=== PATIENT | male | born 1960 | race Caucasian/White ===

== ENCOUNTER 2018-01-17 19:53 | Emergency (ER) | payer OTHER, SELFPAY ==
[2018-01-17 19:54] VITALS: BP 151/103; PULSE 64; RESP 16; TEMP 37.2; O2SAT 98; BMI 31.2
--- NOTE | 2018-01-17 20:20 | CT_ITS ---
STUDY: CT ABDOMEN AND PELVIS WITHOUT CONTRAST REASON FOR EXAM: Male, 57 years old. Regular quadrant pain x2 hours, nausea RADIATION DOSAGE (If Supplied By Facility): CTDIvol = ( 9.83 ) mGy, DLP = ( 594.28 ) mGycm TECHNIQUE: Transaxial images were obtained from the dome of the diaphragm to the symphysis pubis without oral contrast, and without intravenous contrast. Sagittal and coronal images were reconstructed. Individualized dose optimization techniques were used for this CT. COMPARISON: None. FINDINGS: The visualized lung bases are unremarkable. The visualized portions of the heart are within normal limits. Normal liver. Normal gallbladder and extrahepatic biliary system. Normal spleen. Normal pancreas. Normal bilateral adrenal glands. Normal-appearing left kidney. The right kidney shows mild right hydronephrosis and proximal hydroureter with a minimal amount of perinephric inflammatory stranding. However, there is no obstructing stone noted. Findings could be due to a nonradiopaque stone or more likely to a recently passed stone. Normal visualized stomach. Normal small intestine. Normal colon. The appendix is visualized and appears normal. Appendix best seen on axial image 123. Normal abdominal aorta. Normal inferior vena cava. Normal retroperitoneum. Normal urinary bladder. Normal abdominal wall. There are diffuse degenerative changes of the visualized lumbar spine. CT/Abdomen/Pelvis without Cont IMPRESSION: Mild right hydronephrosis with a minimal amount of perinephric inflammatory stranding. No obstructing stone, stricture, or mass noted. Findings likely due to recently passed stone. Normal left kidney and bladder Normal appendix visualized. Retained stool throughout the colon Electronically Signed: Abhinav Aguirre MD at 21:03 EDT , Service support ,
[2018-01-17] MEDS: Morphine 4 MG/ML Syringe IV (20:27)
[2018-01-17] MEDS: 0.9% Normal Saline 1,000 ML 125 ML IV (20:27)
[2018-01-17] MEDS: Ketorolac 30 MG/ML Syringe 15 MG IV (20:28)
[2018-01-17] MEDS: Ondansetron 4 MG/2 ML Vial IV (20:28)
[2018-01-17 20:54] LABS: Absolute Lymphocyte Count 2.07 X10^3/ul (0.83-4.51); Absolute Neutrophil Count 3.8 X10^3/uL (2.0-7.7); Basophil# 0.01 X10^3/uL; Basophil% 0.1 % (0-1); Eosinophil# 0.26 X10^3/uL; Eosinophils% 3.9 % (0-5); Hematocrit 45.3 % (40-54); Hemoglobin 15.2 g/dl (13.0-16.5); Lymphocyte # 2.07 X10^3/ul (4.0); Lymphocyte % 30.7 % (19-41); Mean Corp Hgb Conc 33.6 g/gl (32-36); Mean Corpuscular Hgb 28.4 pg (27.0-32.0); Mean Corpuscular Volume 84.7 fL (80-94); Mean Platelet Vol. 9.2 fl (6.2-12.0); Monocyte# 0.59 X10^3/uL; Monocyte% 8.8 % (0-10); Neutrophil % 56.4 % (47-70); Platelet Count 222 K/mm3 (150-450); RBC Distribution Width CV 12.7 % (11.6-14.6); RBC Distribution Width SD 38.3 fl (35.1-43.9); Red Blood Count 5.35 M/mm3 (4.6-6.2); White Blood Count 6.7 K/mm3 (4.4-11.0)
[2018-01-17 20:55] LABS: POSITIVE COUNT NO; POSITIVE DIFFERENTIAL NO; POSITIVE MORPHOLOGY NO
[2018-01-17 21:00] LABS: ALB/GLOB Ratio 1.2 RATIO (0.9-2.4); AST(SGOT) 20 U/L (15-37); Alanine Aminotransfer ALT/SGPT 39 U/L (16-61); Albumin, Serum 4.1 g/dL (3.2-5.0); Alkaline Phosphatase 81 U/L (45-117); Anion Gap 7 (5-15); BUN 19 mg/dL (7-18); BUN/Creat Ratio 16.5 RATIO (10-20); Calcium,Total 9.1 mg/dL (8.5-10.1); Chloride 104 mmol/L (98-107); Creatinine, Serum 1.15 mg/dL (0.70-1.30); EST Glomerular Filtration Rate 70 mL/min (>60); Est Glom Filt Rate - Afr Amer 84 mL/min (>60); Estimated Creatinine Clearance 73.18 ml/min; Globulin 3.5 g/dL (2.2-4.2); Glucose 102 mg/dL (74-106); Potassium 4.2 mmol/L (3.5-5.1); Protein, Total 7.6 g/dL (6.4-8.2); Sodium Level 140 mmol/L (136-145)
[2018-01-17 21:21] LABS: Color, Urine Yellow (Yellow); Glucose, Dipstick Normal (Normal); Ketone-Dipstick Negative (Negative); Leukocyte Esterase-Dipstick 25 /ul (Negative); Nitrite-Dipstick Negative (Negative); Occult Blood-Urine 250 /ul (Negative); Protein-Dipstick 30 mg/dl (Negative); Specific Gravity, Urine 1.025 (1.002-1.030); Urine Bilirubin Dipstick Negative (Negative); Urine Clarity Sl. Cloudy (Clear); Urine Urobilinogen Normal (Normal)
[2018-01-17 21:27] LABS: Red Blood Cells-Urine > 100 SEEN /hpf (0-5); Squamous Epithelial Cells - UA 5-10 SEEN /hpf (0-5); Transitional Epithelial - Ur 0-5 SEEN /hpf (0-5); White Blood Cells 0-5 SEEN /hpf (0-5)
[2018-01-17 21:28] LABS: Bacteria 1+ /hpf (None Seen); Mucous, Urine 2+ /hpf (<or=2+)
[2018-01-17 21:30] VITALS: BP 154/95; PULSE 70; RESP 16; O2SAT 100
--- NOTE | 2018-01-17 21:53 | ED.VISSUMM ---
- ER Visit Summary Date of Service: 01/17/18 Chief Complaint: [Right flank pain] History of Present Illness: The patient is a 57 M [presents the emergency department complaint of right flank pain that started about 3 hours ago. Patient states the pain came on suddenly and was severe. Patient was sweating and nauseated. Presents for evaluation. Currently states his pain is a 2 out of 10 but it was severe just 10 minutes prior to my evaluating the patient. Patient never had pain like this before. He denies any recent illness. He has had no fevers.] Physical Examination: [HEENT-PERRLA, EOMI. Cranial nerves II through XII grossly intact. TMs clear. Mucous membranes moist. No adenopathy. Cardiovascular-regular rate and rhythm without murmur or ectopy Lungs-clear to auscultation, chest wall stable without crepitus or subcu emphysema Abdomen-normoactive bowel sounds, soft. Patient has some mild tenderness over the right lower quadrant. There is no rebound, rigidity, or perineal signs. Patient has some mild CVA tenderness on the right. Extremities-intact ?4, normal range of motion, normal pulses, atraumatic] Test Results: [CBC with differential obtained normal. Chemistries unremarkable. LFTs were normal. Urinalysis showed greater than 100 RBCs without signs of infection. CT flank showed mild right hydronephrosis and hydroureter but no kidney stone seen is believed he may have passed a stone recently.] Emergency Department Course and Treatment: [None department patient did receive morphine, Zofran, and Toradol. Nurses did note that when patient gave a urine sample there were small stones within the urine sample.] Treatment Plan: [Patient will be given a prescription for [place] for pain.] Disposition: [Discharged home in stable condition] Impression: [The stone with colic-past] This note was generated with [email or web address] dictation software. It may contain incorrect words, spelling, and punctuation that were not noted in review of the chart prior to signing ED Disposition - Plan for ED Patient: Chief Complaint: Abd Pain Referrals: Kasi Castro MD [Primary Care Provider] -
--- NOTE | 2018-01-17 21:56 | DCINST.ED_ITS ---
ED Disposition - Plan for ED Patient: Chief Complaint: Abd Pain Instructions: ED Stone Renal Passed Prescriptions: Hydrocodone Bitart/Apap 5-325 [[place] 5MG-325MG] 1 tab PO Q4H PRN PRN 2 Days #10 tab PRN Reason: Pain Referrals: Kasi Castro MD [Primary Care Provider] - Shiv Sheth MD [STAFF PHYSICIAN] - As Needed
[2018-01-17 22:03] VITALS: BP 154/95; PULSE 70; RESP 16; O2SAT 100
== END 2018-01-17 22:05 | disposition home or self-care (01) ==
LOC: ED 20:47
PROVIDERS: Emergency Provider Emergency Medicine; Family Provider Family Medicine; PCP Family Medicine
DX: N13.2 Hydronephrosis with renal and ureteral calculous obstruction (principal); Z79.899 Other long term (current) drug therapy; F17.220 Nicotine dependence, chewing tobacco, uncomplicated
CPT/HCPCS: 74176; 80053; 81001; 85025; 96361; 96374; 96375; 99283; J7030; A4216; J2405